=== PATIENT | female | born 1970 | race Two or more races ===

== ENCOUNTER 2022-08-08 11:03 | Emergency (ER) | payer MEDICAID ==
[~2022-08-08] VITALS: Ht 162.6 cm; Wt 73.2 kg
[2022-08-08 11:30] VITALS: BP 156/90
[2022-08-08] MEDS ORDERED: ketorolac trometh inj. 60 MG/2 ML VIAL IM ONE (12:35)
[2022-08-08] MEDS ORDERED: GABA-530 PO (12:39)
[2022-08-08] MEDS ORDERED: AMOX-117 PO (12:39)
== END 2022-08-08 12:57 | disposition home or self-care (01) ==
LOC: ER 11:04
DX: K04.7 Periapical abscess without sinus (principal); Z88.6 Allergy status to analgesic agent
CPT/HCPCS: 96372; 99283; J1885